=== PATIENT | male | born 1945 | race Two or more races ===

== ENCOUNTER 2020-05-21 08:39 | Day surgery (SDC) | payer MEDICARE ==
[~2020-05-21] VITALS: Ht 188 cm; Wt 92.4 kg
[2020-05-21 09:25] VITALS: BP 123/87
[2020-05-21] MEDS ORDERED: LIDOCAINE 1%, 20ML ONE (10:59)
[2020-05-21] MEDS ORDERED: LIDOCAINE 1%, 10ML ONE (11:12)
[2020-05-21] MEDS ORDERED: FENTANYL PF 100 MCG/2ML ONE (11:20)
[2020-05-21] MEDS ORDERED: MIDAZOLAM 1 MG/ML, 5ML ONE (11:20)
[2020-05-21] MEDS ORDERED: FLUMAZENIL 0.1 MG/1 ML, 5ML ONE (11:20)
[2020-05-21] MEDS ORDERED: NALOXONE 1 MG/ML, 2ML ONE (11:20)
[2020-05-21] MEDS ORDERED: CEFAZOLIN PMX 1GM/50ML 0 ML ONE (11:27)
[2020-05-21] MEDS ORDERED: CEFAZOLIN PMX 1GM/50ML 50 ML ONE (11:36)
== END 2020-05-21 13:45 | disposition home or self-care (01) ==
LOC: OUT 08:39
PROVIDERS: ATTEND Internal Medicine Hematology & Oncology
DX: C18.2 Malignant neoplasm of ascending colon (principal); D50.9 Iron deficiency anemia, unspecified; I10 Essential (primary) hypertension; Z79.899 Other long term (current) drug therapy; Z90.49 Acquired absence of other specified parts of digestive tract; Z80.9 Family history of malignant neoplasm, unspecified
CPT/HCPCS: 36561; 76937; 77001; 99156; 99157; C1788; J0690; J1642; J2250; J3010; J2310